=== PATIENT | female | born 1955 | race Caucasian/White ===

== ENCOUNTER 2021-12-09 13:13 | Outpatient (CLI) | payer MEDICARE, OTHER | END 2021-12-09 13:14 | disposition home or self-care (01) | LOC: CSHMAMMO 13:13 | PROVIDERS: ATTEND Obstetrics & Gynecology | DX: Z13.820 Encounter for screening for osteoporosis (principal); Z12.11 Encounter for screening for malignant neoplasm of colon; Z78.0 Asymptomatic menopausal state | CPT/HCPCS: 77080 ==